=== PATIENT | female | born 1975 | race Two or more races ===

== ENCOUNTER 2025-07-24 18:02 | Emergency (ER) | payer OTHER ==
[~2025-07-24] VITALS: Ht 172.7 cm; Wt 70.3 kg
[2025-07-24] MEDS ORDERED: PANTOPRAZOLE 40 MG VIAL ONE (19:19)
[2025-07-24] MEDS ORDERED: DICYCLOMINE HCL 10 MG CAPSULE PO ONE (19:20)
[2025-07-24] MEDS ORDERED: ONDANSETRON HCL/PF 4 MG/2 ML VIAL ONE (19:20)
[2025-07-24] MEDS ORDERED: ACETAMINOPHEN ES 500 MG TABLET ONE (19:20)
[2025-07-24] MEDS ORDERED: FAMOTIDINE/PF INJ 20 MG/2 ML VIAL IV ONE (19:20)
[2025-07-24] MEDS: IV NS 0.9% 1,000 ML BAG IV ONE (19:36)
[2025-07-24] MEDS: ONDANSETRON HCL/PF 4 MG/2 ML VIAL IVP ONE (19:37)
[2025-07-24] MEDS: ACETAMINOPHEN ES 500 MG TABLET PO ONE (19:37)
[2025-07-24] MEDS: FAMOTIDINE/PF INJ 20 MG/2 ML VIAL IV ONE (19:37)
[2025-07-24] MEDS: DICYCLOMINE HCL 10 MG CAPSULE PO ONE (19:37)
[2025-07-24] MEDS: PANTOPRAZOLE 40 MG VIAL IV ONE (19:37)
[2025-07-24 19:40] LABS: PLATELET COUNT (AUTO) 269 K/uL (150-450); RED BLOOD CELL COUNT(AUTO) 4.15 MIL/uL (4.0-5.2); RED CELL DISTRIBUTION WIDTH 13.2 % (11.5-15.0); WHITE BLOOD COUNT (AUTO) 6.7 K/uL (4.3-11.0)
[2025-07-24 19:47] LABS: CALCIUM, SERUM 8.8 mg/dL (8.5-10.1); CREATININE 0.6 mg/dL (0.6-1.3); SODIUM SERUM 139 mmol/L (136-145); UREA NITROGEN, BLOOD 12 mg/dL (7-18)
[2025-07-24 19:53] LABS: ASPARTATE AMINOTRANSFERASE 15 U/L (15-37); TOTAL PROTEIN, SERUM 7.1 g/dL (6.4-8.2)
[2025-07-24 19:56] LABS: APPEARANCE,URINE SLIGHTLY CLOUDY (CLEAR); BLOOD, URINE Negative Ery/uL (NEGATIVE); LEUKOCYTE ESTERASE ,URINE Negative (NEGATIVE); NITRITE, URINE NEGATIVE (NEGATIVE); UGLUCOSE Negative (NEGATIVE)
[2025-07-24 20:02] LABS: ADD URINE CULTURE NO
[2025-07-24] MEDS ORDERED: ONDA4TAB5 PO (20:39)
[2025-07-24] MEDS ORDERED: FAMO-131 PO (20:39)
[2025-07-24] MEDS ORDERED: DICY10CA37 PO (20:39)
[2025-07-24] MEDS ORDERED: ACET-868 PO (20:39)
[2025-07-24] MEDS ORDERED: PANT40TA49 PO (20:39)
[2025-07-24 20:48] VITALS: BP 132/64; TEMP 98.3; O2SAT 97
== END 2025-07-24 20:48 | disposition home or self-care (01) ==
LOC: ER 18:10
DX: K29.70 Gastritis, unspecified, without bleeding (principal); Z79.899 Other long term (current) drug therapy
CPT/HCPCS: 99285; 96374; 76705; 96375; 96361; 93005; 85025; 80048; 83690; 80076; 81001; 36415; 84484; J1308; J2405; J7030; J2470